=== PATIENT | female | born 1995 | race Caucasian/White ===

== ENCOUNTER 2016-12-17 22:14 | Outpatient (CLI) | payer OTHER ==
[2016-12-17 22:59] LABS: Appearance,Urine Clear (Clear); Bilirubin,Urine Negative (Negative); Glucose,Urine (UA) Negative (Negative); Ketones,Urine Negative (Negative); Leukocyte Esterase,Urine Negative (Negative); Nitrite,Urine Negative (Negative); PH, Urine 6.5 (5.0-8.0); Protein,Urine Trace (Negative); Specific Gravity,Urine 1.018 (1.001-1.035); UA Billing (MACRO vs. MICRO) CHEM; Urobilinogen,Urine <2.0 mg/dL (<2.0)
== END 2016-12-17 23:42 | disposition home or self-care (01) ==
LOC: FBPOP 22:14
PROVIDERS: ATTEND Obstetrics & Gynecology
DX: O99.89 Other specified diseases and conditions complicating pregnancy, childbirth and the puerperium (principal); R10.9 Unspecified abdominal pain; Z3A.35 35 weeks gestation of pregnancy
CPT/HCPCS: 59025; 81003; G0463; 99213

== ENCOUNTER 2017-01-15 06:08 | Inpatient (IN) | payer OTHER ==
[2017-01-15] MEDS ORDERED: TERBUTALINE 1 MG/ML VIAL SQ PRN (06:15)
[2017-01-15] MEDS ORDERED: OXYTOCIN 10 UNIT/ML 1 ML VIAL IM PRN (06:15)
[2017-01-15] MEDS ORDERED: CARBOPROST TROMETHAMINE 250 MCG/ML 1 ML AMP IM PRN (06:15)
[2017-01-15] MEDS ORDERED: LIDOCAINE 1% (PF) 10 MG/ML (30 ML SDV) SQ PRN (06:15)
[2017-01-15] MEDS ORDERED: METHYLERGONOVINE 0.2 MG/ML 1 ML AMP IM PRN (06:15)
[2017-01-15 06:21] VITALS: BMI 38.8
[2017-01-15] MEDS: LACTATED RINGERS 1,000 ML IV SCH ×3 (06:28→15:04)
[2017-01-15] MEDS: OXYTOCIN 30 UNITS/500 ML NS 30 UNIT in SALINE 1 500ML.BAG IV SCH (06:33)
[2017-01-15 06:37] LABS: Basophils # (A) 0.1 k/uL (0-0.2); Basophils % (A) 0 %; CH 28.4; CHCM 33.7; Eosinophils # (A) 0.4 k/uL (0-0.7); Eosinophils % (A) 3 %; HCT 35.4 % (34.0-46.0); HDW 2.93; HGB 11.6 gm/dL (11.4-16.0); Luc % (Auto) 2; Lymphocytes # (A) 3.6 k/uL (1.0-4.8); Lymphocytes % (A) 28 %; MCH 27.7 pg (25.0-35.0); MCHC 32.8 g/dL (31.0-37.0); MCV 84.7 fL (80.0-100.0); Mean Platelet Volume 7.6; Monocytes # (A) 0.6 k/uL (0-1.0); Monocytes % (A) 5 %; Neutrophils # (A) 8.1 k/uL (1.3-7.7); Neutrophils % (A) 62 %; RBC 4.18 m/uL (3.80-5.40); RDW 14.3 % (11.5-15.5); WBC (Perox) 13.44
[2017-01-15] MEDS ORDERED: BUPIVACAINE (PF) 0.25% 30 ML VIAL ONE (10:30)
[2017-01-15] MEDS ORDERED: SODIUM CHLORIDE 0.9% 100 ML BAG ONE ×2 (10:30→22:10)
[2017-01-15] MEDS ORDERED: fentaNYL (PF) 50 MCG/ML 5 ML AMP ONE (10:30)
[2017-01-15] MEDS ORDERED: BUPIVACAINE (PF) 0.25% 25 ML, fentaNYL (PF) 200 MCG in SODIUM CHLORIDE 0.9% 71 ML EPIDURAL ONE (10:42)
--- NOTE | 2017-01-15 13:07 | P.HPOB ---
History of Present Illness H&P Date: 01/15/17 Chief Complaint: Induction of Labor 21 year old presents at 39 weeks 5 days for induction of labor. Her cervix is 2-3/80/-2 and she is alison irregularly. Heart tones 140-145 with moderate variability and reactive. Review of Systems All systems: negative Constitutional: Denies chills, Denies fever Eyes: denies blurred vision, denies pain Ears, nose, mouth and throat: Denies headache, Denies sore throat Cardiovascular: Denies chest pain, Denies shortness of breath Respiratory: Denies cough Gastrointestinal: Denies abdominal pain, Denies diarrhea, Denies nausea, Denies vomiting Genitourinary: Denies dysuria, Denies hematuria Musculoskeletal: Denies myalgias Integumentary: Denies pruritus, Denies rash Neurological: Denies numbness, Denies weakness Psychiatric: Denies anxiety, Denies depression Endocrine: Denies fatigue, Denies weight change Past Medical History Past Medical History: No Reported History Additional Past Medical History / Comment(s): Obstetric history: First was an elective termination. This is her second and she has had care with me since 11 weeks. AB+, abs neg, Rub nonimmune, RPR NR, Hep B neg, HIV NR. History of Any Multi-Drug Resistant Organisms: None Reported Past Surgical History: Orthopedic Surgery Additional Past Surgical History / Comment(s): shoulder replacement Past Anesthesia/Blood Transfusion Reactions: Postoperative Nausea & Vomiting ( PONV) Past Psychological History: Anxiety Smoking Status: Never smoker Past Alcohol Use History: Occasional Past Drug Use History: None Reported - Past Family History Mother Family Medical History: No Reported History Medications and Allergies Home Medications Medication Instructions Recorded Confirmed Type #79/Iron Asp Gly/FA#1 1 each PO DAILY 12/17/16 01/15/17 History [Prenate Elite Tablet] Acetaminophen Tab [Tylenol Tab] 650 mg PO Q4H PRN 01/09/17 01/15/17 History Ranitidine HCl [Zantac] 150 mg PO DAILY 01/09/17 01/15/17 History Allergies Allergy/AdvReac Type Severity Reaction Status Date / Time morphine Allergy Anaphylaxis Verified 01/13/17 01:14 Exam Osteopathic Statement: *. No significant issues noted on an osteopathic structural exam other than those noted in the History and Physical/Consult. - Vital Signs Vital signs: Vital Signs Temp Pulse Resp BP Pulse Ox 01/15/17 06:16 96.5 F L 89 16 137/95 97 Intake and Output 01/14/17 01/15/17 01/15/17 22:59 06:59 14:59 Intake Total 1000 Balance 1000 Intake: IV 1000 Lactated Ringers 1,000 ml 1000 @ 125 mls/hr IV .Q8H [facility] Rx#:[id number] Other: Weight 112.491 kg Heart: RRR Lungs: CTAB abdomen: soft, nontender Extremeties: neg lissa's Results Result Diagrams: 01/15/17 06:30 Abnormal Lab Results - Last 24 Hours (Table) 01/15/17 Range/Units 06:30 WBC 13.0 H (3.8-10.6) k/uL Neutrophils # 8.1 H (1.3-7.7) k/uL Assessment and Plan (1) Normal labor Status: Acute Plan: 1. induction of labor with amniotomy and pitocin 2. anticipate normal vaginal delivery
[2017-01-15] MEDS ORDERED: HYDROmorphone 1 MG/ML 1 ML SYRINGE IVP STA (17:31)
[2017-01-15] MEDS ORDERED: CITRIC ACID-SODIUM CITRATE 15 ML CUP PO ONE (21:48)
[2017-01-15] MEDS ORDERED: ceFAZolin 2 GM in SODIUM CHLORIDE 0.9% 100 ML IVPB ONE (21:48)
[2017-01-15] MEDS ORDERED: HYDROmorphone (PF) 1 MG/ML ONE (22:10)
[2017-01-15] MEDS ORDERED: PROPOFOL 10 MG/ML 20 ML VIAL IV ONE (22:10)
[2017-01-15] MEDS ORDERED: SUCCINYLCHOLINE CHLORIDE 100 MG/5 ML SYR IV ONE (22:10)
[2017-01-15] MEDS ORDERED: KETOROLAC 30 MG/ML 1 ML VIAL ONE (22:10)
[2017-01-15] MEDS ORDERED: ONDANSETRON 4 MG/2 ML VIAL ONE (22:10)
[2017-01-15] MEDS ORDERED: MIDAZOLAM 2 MG/2 ML VIAL ONE (22:10)
[2017-01-15] MEDS ORDERED: OXYTOCIN 10 UNIT/ML 1 ML VIAL IM ONE (22:10)
[2017-01-15] MEDS ORDERED: ceFAZolin 1,000 MG VIAL ONE (22:10)
[2017-01-15] MEDS ORDERED: ZOLPIDEM 5 MG TAB PO PRN (22:50)
[2017-01-15] MEDS ORDERED: HYDROmorphone PCA 5 MG/25 ML SYRINGE IV PRN (22:50)
[2017-01-15] MEDS ORDERED: NALOXONE 0.4 MG/ML 1 ML VIAL IV PRN (22:50)
[2017-01-15] MEDS ORDERED: ACETAMINOPHEN TAB 325 MG TAB PO PRN (22:50)
[2017-01-15] MEDS ORDERED: diphenhydrAMINE 50 MG CAP PO PRN (22:50)
[2017-01-15] MEDS ORDERED: ONDANSETRON 4 MG/2 ML VIAL IVP PRN (22:50)
[2017-01-15] MEDS ORDERED: diphenhydrAMINE 50 MG/ML 1 ML VIAL IVP PRN ×2 (22:50)
[2017-01-15] MEDS ORDERED: diphenhydrAMINE 25 MG CAP PO PRN (22:50)
[2017-01-15] MEDS ORDERED: SIMETHICONE 80 MG CHEWABLE PO PRN (22:50)
[2017-01-15] MEDS ORDERED: METOCLOPRAMIDE 5 MG/ML 2 ML VIAL IVP PRN (22:50)
--- NOTE | 2017-01-15 22:56 | P.OP ---
Date of Procedure: 01/15/17 Preoperative Diagnosis: 1. at 39 and 5 2. Arrest of descent Postoperative Diagnosis: 1. at 39 and 5 2. Arrest of descent Procedure(s) Performed: Primary low transverse Anesthesia: SYLVIE Surgeon: Debi Murcia Ell Teacher #1: Jamil Jacobs Estimated Blood Loss (ml): 700 IV fluids (ml): 700 Urine output (ml): 75 Pathology: other (Placenta) Condition: stable Disposition: floor Operative Findings: Viable female, Apgars 8, 9, weight 7 lbs. 13 oz. Description of Procedure: Patient was taken to the operating room where epidural anesthesia was found not to be adequate. General anesthesia was obtained without difficulty. She was prepped and draped in normal sterile fashion in dorsal supine position with a leftward tilt. Pfannenstiel skin incision was made the scalpel and carried through to the underlying layer of fascia with the scalpel. Fascia was incised in midline and carried bilaterally with the Doherty scissors. The superior aspect of the fascial incision was grasped with Jeffrey clamps elevated and the underlying rectus muscles dissected off with the Doherty's. Attention was then turned to inferior aspect of same incision which in a similar fashion was grasped tented up and the underlying rectus muscles dissected off with the Doherty' s. The rectus muscles were the midline and the peritoneum was identified tented up and entered sharply with the scalpel. The incision was extended superiorly and inferiorly with good visualization of the bladder. The bladder blade was inserted and the vesicouterine peritoneum was incised the Metzenbaums then carried bilaterally and bladder flap created digitally. A low transverse incision was then made on the uterus with the scalpel. This was carried bilaterally and digital manner. 's head delivered atraumatically , nose and mouth bulb suctioned, cord clamped and cut, infant handed off to waiting nurses. Apgars 8,9, weight 7 lbs. 13 oz. Placenta delivered manually, intact with three-vessel cord. The uterus is exteriorized and cleared of all clots and debris. The uterine incision was closed with 0 Vicryl in a running locked fashion. Second layer of the same sutures used in imbricating fashion to obtain excellent hemostasis. Bladder flap was then reapproximated using 2-0 Vicryl in a running fashion. Both ovaries and tubes appeared normal. The uterus was placed back into the abdomen. The peritoneum was reapproximated using 2-0 Vicryl in a running fashion. The muscles were reapproximated using 2- 0 Vicryl in interrupted fashion. The fascia was reapproximated using 0 Vicryl in a running fashion. The subcutaneous tissues closed with 3-0 Vicryl running fashion. The skin was closed iveth. Patient tolerated the procedure well, sponge and instrument counts were correct times 2 and she was taken to the recovery room in stable condition.
[2017-01-16] MEDS: OXYTOCIN 30 UNITS/500 ML NS 30 UNIT in SALINE 1 500ML.BAG IV SCH ×2 (00:12→04:36)
[2017-01-16] MEDS: KETOROLAC 30 MG/ML 1 ML VIAL IVP SCH ×4 (00:13→22:36)
[2017-01-16] MEDS: LACTATED RINGERS 1,000 ML IV SCH ×3 (02:00→09:29)
[2017-01-16 06:48] LABS: Basophils % (A) 0 %; CH 28.3; CHCM 32.6; Eosinophils % (A) 0 %; HCT 31.1 % (34.0-46.0); HDW 2.81; Luc # (Auto) 0.29; Luc % (Auto) 2; Lymphocytes # (A) 2.3 k/uL (1.0-4.8); Lymphocytes % (A) 13 %; MCH 28.1 pg (25.0-35.0); MCHC 32.2 g/dL (31.0-37.0); MCV 87.2 fL (80.0-100.0); Mean Platelet Volume 7.4; Monocytes # (A) 0.9 k/uL (0-1.0); Monocytes % (A) 5 %; Neutrophils # (A) 14.6 k/uL (1.3-7.7); Neutrophils % (A) 80 %; RBC 3.57 m/uL (3.80-5.40); RDW 14.5 % (11.5-15.5); WBC 18.2 k/uL (3.8-10.6)
--- NOTE | 2017-01-16 07:14 | P.PNOBGPC ---
Subjective - Subjective Principal diagnosis: S/P 1*LTCS POD #1 Interval history: Pt seen and examined. Denies N/V, F/C, CP, SOB, calf pain. Patient reports: Reports appetite normal, Reports voiding normally, Reports pain well controlled (with SOLDER LEVEL[employer]ED [employer] BOARDS) : doing well Objective - Vital Signs Latest vital signs: Vital Signs Temp Pulse Resp BP Pulse Ox 01/16/17 04:00 97.6 F 105 H 16 133/77 98 01/16/17 01:12 97.0 F L 99 16 133/72 97 01/16/17 00:38 100 18 132/63 96 01/16/17 00:08 91 18 140/69 96 01/15/17 23:53 91 18 139/65 97 01/15/17 23:42 91 18 135/61 97 01/15/17 23:27 97 20 139/62 98 01/15/17 23:08 96.6 F L 115 H 20 133/63 98 Intake and Output 01/15/17 01/16/17 01/16/17 22:59 06:59 14:59 Intake Total 1000 Output Total 300 2950 Balance 700 -2950 Intake: IV 1000 Lactated Ringers 1,000 ml 1000 @ 125 mls/hr IV .Q8H [facility] Rx#:[id number] Output: Urine 300 150 Estimated Blood Loss 2800 Other: Voiding Method Indwelling Catheter - Exam Lungs: bilateral: normal Chest: Normal S1, Normal S2 Extremities: Present: normal Abdomen: Present: normal appearance, soft. Absent: distention, tenderness Incision: Present: normal, dry, intact Uterus: Present: normal, firm - Labs Labs: Abnormal Lab Results - Last 24 Hours (Table) 01/16/17 Range/Units 06:16 WBC 18.2 H (3.8-10.6) k/uL RBC 3.57 L (3.80-5.40) m/uL Hgb 10.0 L D (11.4-16.0) gm/dL Hct 31.1 L (34.0-46.0) % Neutrophils # 14.6 H (1.3-7.7) k/uL Assessment and Plan (1) Normal labor Current Visit: Yes Status: Resolved Code(s): O80 - ENCOUNTER FOR FULL-TERM UNCOMPLICATED DELIVERY; Z37.9 - OUTCOME OF DELIVERY, UNSPECIFIED SNOMED Code(s ): 25853641 (2) Status post primary low transverse section Narrative/Plan: 1. increase ambulation 2. reg diet with flatus 3. d/c electronics processor and start po pain meds. Current Visit: Yes Status: Acute Code(s): Z98.891 - HISTORY OF UTERINE SCAR FROM PREVIOUS SURGERY SNOMED Code(s): 366040497
[2017-01-16] MEDS: SENNOSIDES-DOCUSATE SODIUM 1 EACH TAB PO SCH ×2 (09:27→19:53)
[2017-01-16 20:31] VITALS: RESP 16
[2017-01-16] MEDS: Acetaminophen-Codeine 300-30mg TAB PO PRN (22:49)
[2017-01-17] MEDS: LACTATED RINGERS 1,000 ML IV SCH ×3 (01:49→01:51)
[2017-01-17] MEDS: OXYTOCIN 30 UNITS/500 ML NS 30 UNIT in SALINE 1 500ML.BAG IV SCH ×3 (01:50→01:52)
[2017-01-17] MEDS: IBUPROFEN 600 MG TAB PO PRN ×3 (04:21→23:17)
--- NOTE | 2017-01-17 07:08 | P.PNOBGPC ---
Subjective - Subjective Principal diagnosis: S/P 1*LTCS POD #1 Interval history: Patient seen and examined. Denies N/V, F/C, CP, SOB, calf pain. Patient reports: Reports appetite normal, Reports voiding normally, Reports pain well controlled, Reports ambulating normally : doing well Objective - Vital Signs Latest vital signs: Vital Signs Temp Pulse Resp BP Pulse Ox 01/16/17 23:23 99.1 F 110 H 16 121/95 98 01/16/17 20:00 97.7 F 108 H 16 125/70 98 01/16/17 16:00 97.8 F 107 H 18 131/59 01/16/17 12:00 97.1 F L 105 H 18 125/68 01/16/17 08:00 97.1 F L 106 H 18 116/54 Intake and Output 01/16/17 01/17/17 01/17/17 22:59 06:59 14:59 Intake Total 1000 Output Total 500 Balance 500 Intake: IV 1000 Invasive Line 1 1000 Output: Urine 500 Other: # Voids 1 - Exam Lungs: bilateral: normal Chest: Normal S1, Normal S2 Extremities: Present: normal Abdomen: Present: normal appearance, soft. Absent: distention, tenderness Incision: Present: normal, dry, intact Uterus: Present: normal, firm Assessment and Plan (1) Normal labor Current Visit: Yes Status: Resolved Code(s): O80 - ENCOUNTER FOR FULL-TERM UNCOMPLICATED DELIVERY; Z37.9 - OUTCOME OF DELIVERY, UNSPECIFIED SNOMED Code(s ): 43579877 (2) Status post primary low transverse section Narrative/Plan: 1. cont pain control 2. work on breast feeding 3. increase ambulation Current Visit: Yes Status: Acute Code(s): Z98.891 - HISTORY OF UTERINE SCAR FROM PREVIOUS SURGERY SNOMED Code(s): 467308307
[2017-01-17] MEDS: SENNOSIDES-DOCUSATE SODIUM 1 EACH TAB PO SCH ×2 (08:27→19:26)
[2017-01-17] MEDS: Acetaminophen-Codeine 300-30mg TAB PO PRN ×2 (09:49→19:25)
[2017-01-18] MEDS: Acetaminophen-Codeine 300-30mg TAB PO PRN (03:12)
[2017-01-18] MEDS: IBUPROFEN 600 MG TAB PO PRN (08:37)
[2017-01-18 08:47] VITALS: BP 147/90; PULSE 105; TEMP 98.1
--- NOTE | 2017-01-18 08:52 | P.DS ---
Providers Date of admission: 01/15/17 06:08 Expected date of discharge: 01/18/17 Attending physician: Debi Murcia Primary care physician: Stated None - Discharge Diagnosis(es) (1) Normal labor Current Visit: Yes Status: Resolved (2) Status post primary low transverse section Current Visit: Yes Status: Acute Hospital Course: Patient presented for induction of labor. She underwent a primary low transverse . Her postop course was uncomplicated. She will be discharged home POD #3 in stable condition to follow up with me in 1 week. Plan - Discharge Summary New Discharge Prescriptions: Acetaminophen-Codeine 300-30mg [Tylenol #3] 2 tab PO Q6H PRN #30 tablet PRN Reason: Pain Ibuprofen [Motrin] 600 mg PO Q6HR PRN #30 tab PRN Reason: Mild Pain Or Fever >= 100.5 Discharge Medication List #79/Iron Asp Gly/FA#1 [Prenate Elite Tablet] 1 each PO DAILY 12/17/16 [ History] Acetaminophen Tab [Tylenol Tab] 650 mg PO Q4H PRN 01/09/17 [History] Ranitidine HCl [Zantac] 150 mg PO DAILY 01/09/17 [History] Acetaminophen-Codeine 300-30mg [Tylenol #3] 2 tab PO Q6H PRN #30 tablet [Rx] Ibuprofen [Motrin] 600 mg PO Q6HR PRN #30 tab 01/18/17 [Rx] Follow up Appointment(s)/Referral(s): Debi Murcia DO [Doctor of Osteopathic Medicine] - 1 Week
[2017-01-18] MEDS: SENNOSIDES-DOCUSATE SODIUM 1 EACH TAB PO SCH (13:31)
== END 2017-01-18 11:15 | disposition home or self-care (01) | DRG 766 ==
LOC: 4FBP 06:08
PROVIDERS: ADMIT Obstetrics & Gynecology; ATTEND Obstetrics & Gynecology
PROC: 3E033VJ Introduction of Other Hormone into Peripheral Vein, Percutaneous Approach (ICD-10-PCS; 2017-01-15)
PROC: 10907ZC Drainage of Amniotic Fluid, Therapeutic from Products of Conception, Via Natural or Artificial Opening (ICD-10-PCS; 2017-01-15)
PROC: 3E0S3NZ Introduction of Analgesics, Hypnotics, Sedatives into Epidural Space, Percutaneous Approach (ICD-10-PCS; 2017-01-15)
PROC: 10D00Z1 Extraction of Products of Conception, Low, Open Approach (ICD-10-PCS; principal; 2017-01-15 22:24)
DX: O80 Encounter for full-term uncomplicated delivery (principal); O61.0 Failed medical induction of labor; O62.1 Secondary uterine inertia; Z3A.39 39 weeks gestation of pregnancy; Z37.0 Single live birth; Z96.619 Presence of unspecified artificial shoulder joint; Z88.5 Allergy status to narcotic agent; Z79.899 Other long term (current) drug therapy; Z28.29 Immunization not carried out because of patient decision for other reason; Z86.59 Personal history of other mental and behavioral disorders
CPT/HCPCS: 85025; 88307

== ENCOUNTER → 2020-08-02 | Outpatient (CLI) | payer OTHER ==
[2020-08-02 13:26] LABS: Basophils # (A) 0.1 k/uL (0-0.2); Basophils % (A) 1 %; Eosinophils # (A) 1.3 k/uL (0-0.7); Eosinophils % (A) 15 %; HCT 44.9 % (34.0-46.0); HGB 14.5 gm/dL (11.4-16.0); Lymphocytes # (A) 3.2 k/uL (1.0-4.8); Lymphocytes % (A) 38 %; MCH 27.2 pg (25.0-35.0); MCHC 32.3 g/dL (31.0-37.0); MCV 84.2 fL (80.0-100.0); Mean Platelet Volume 7.5; Monocytes # (A) 0.5 k/uL (0-1.0); Monocytes % (A) 5 %; Neutrophils # (A) 3.4 k/uL (1.3-7.7); Neutrophils % (A) 40 %; Platelet Count 323 k/uL (150-450); RBC 5.34 m/uL (3.80-5.40); RDW 12.2 % (11.5-15.5); WBC 8.5 k/uL (3.8-10.6)
== END | disposition home or self-care (01) ==
LOC: LABPAT 12:14
PROVIDERS: ATTEND Obstetrics & Gynecology
DX: Z01.818 Encounter for other preprocedural examination (principal)
CPT/HCPCS: 36415; 85025

== ENCOUNTER 2020-08-09 06:41 | Day surgery (SDC) | payer OTHER ==
[2020-08-04 15:02] VITALS: BMI 38.3
[~2020-08-09 06:41] MED LIST: DEXAMETHASONE SOD PHOSPHATE 10 MG/ML 1 ML VIAL IV ONE; LACTATED RINGERS 1,000 ML IV SCH; LIDOCAINE 1% (10MG/ML) FOR IV START INTRADERMA PRN; MIDAZOLAM 2 MG/2 ML VIAL IV PRN; Pre Op ABX Message 1 EACH MISC MISCELLANE ONE; fentaNYL (PF) 50 MCG/ML 2 ML AMP IV PRN
[2020-08-09] MEDS ORDERED: ONDANSETRON 4 MG/2 ML VIAL IVP ONE (07:16)
[2020-08-09] MEDS ORDERED: ONDANSETRON 4 MG/2 ML VIAL ONE (07:17)
--- NOTE | 2020-08-09 07:56 | P.HPOB ---
History of Present Illness H&P Date: 08/09/20 Chief Complaint: Family planning 25-year-old presents for bilateral laparoscopic salpingectomy. She wants is her family planning reasons as well as a family history of ovarian cancer. Review of Systems All systems: negative Constitutional: Denies chills, Denies fever Eyes: denies blurred vision, denies pain Ears, nose, mouth and throat: Denies headache, Denies sore throat Cardiovascular: Denies chest pain, Denies shortness of breath Respiratory: Denies cough Gastrointestinal: Denies abdominal pain, Denies diarrhea, Denies nausea, Denies vomiting Genitourinary: Denies dysuria, Denies hematuria Musculoskeletal: Denies myalgias Integumentary: Denies pruritus, Denies rash Neurological: Denies numbness, Denies weakness Psychiatric: Denies anxiety, Denies depression Endocrine: Denies fatigue, Denies weight change Past Medical History Past Medical History: No Reported History Additional Past Medical History / Comment(s): HIGH CANCER RISK FOR OVARIAN AND BREAST CANCER History of Any Multi-Drug Resistant Organisms: None Reported Past Surgical History: Section, Orthopedic Surgery Additional Past Surgical History / Comment(s): LT shoulder replacement. ELECTIVE PREG. TERMINATION Past Anesthesia/Blood Transfusion Reactions: Postoperative Nausea & Vomiting (PONV) Past Psychological History: Anxiety Smoking Status: Current every day smoker Past Alcohol Use History: Occasional Additional Past Alcohol Use History / Comment(s): SMOKES 1/2 PPD SINCE AGE 22 Past Drug Use History: None Reported - Past Family History Mother Family Medical History: Cancer Additional Family Medical History / Comment(s): BREAST. AUNT OVARIAN AND BREAST. GRANDMOTHER-OVARIAN Medications and Allergies Home Medications Medication Instructions Recorded Confirmed Type Loratadine [Claritin] 10 mg PO DAILY 08/04/20 08/04/20 History Phentermine HCl 37.5 mg PO AC-BRKFST 08/04/20 08/04/20 History Allergies Allergy/AdvReac Type Severity Reaction Status Date / Time morphine Allergy Anaphylaxis Verified 08/04/20 14:54 Exam Osteopathic Statement: *. No significant issues noted on an osteopathic structural exam other than those noted in the History and Physical/Consult. Vital Signs Temp Pulse Resp BP Pulse Ox 08/09/20 07:13 98.6 F 103 H 20 133/71 95 Intake and Output 08/08/20 08/09/20 08/09/20 22:59 06:59 14:59 Other: Weight 102.4 kg Heart: Regular rate and rhythm Lungs: Clear to auscultation bilaterally Abdomen: Soft, nontender Extremities: Negative Homans sign Assessment and Plan (1) Family planning Current Visit: Yes Status: Acute Code(s): Z30.09 - ENCOUNTER FOR OTH GENERAL CNSL AND ADVICE ON CONTRACEPTION SNOMED Code(s): 241537898 (2) Family history of ovarian cancer Current Visit: Yes Status: Acute Code(s): Z80.41 - FAMILY HISTORY OF MALIGNANT NEOPLASM OF OVARY SNOMED Code(s): 049050468 Plan: 1. Bilateral Laparoscopic salpingectomy. Patient does understand that this only minimally decreases her risk. Ferrous gluconate codon immensely and she had her ovaries removed however she is not ready to deal with the issues of menopause.
[2020-08-09] MEDS ORDERED: PROPOFOL 10 MG/ML 20 ML VIAL IV ONE (08:05)
[2020-08-09] MEDS ORDERED: HYDROmorphone (PF) 1 MG/ML ONE (08:05)
[2020-08-09] MEDS ORDERED: ROCURONIUM BROMIDE 10 MG/ML 5 ML VIAL IV ONE (08:05)
[2020-08-09] MEDS ORDERED: NEOSTIGMINE 1 MG/ML 10 ML VIAL ONE (08:05)
[2020-08-09] MEDS ORDERED: SUCCINYLCHOLINE CHLORIDE VIAL 200 MG/10 ML VIAL IV ONE (08:05)
[2020-08-09] MEDS ORDERED: ACETAMINOPHEN IV (For NPO) 1,000 MG/100 ML VIAL ONE (08:05)
[2020-08-09] MEDS ORDERED: LIDOCAINE 1% INJ 10MG/ML (20 ML MDV) ONE (08:05)
[2020-08-09] MEDS ORDERED: MIDAZOLAM 2 MG/2 ML VIAL ONE (08:05)
[2020-08-09] MEDS ORDERED: GLYCOPYRROLATE 0.2 MG/ML 2 ML VIAL ONE (08:05)
[2020-08-09] MEDS ORDERED: KETOROLAC 15 MG/ML 1 ML VIAL ONE (08:05)
[2020-08-09] MEDS ORDERED: fentaNYL (PF) 50 MCG/ML 2 ML AMP ONE (08:05)
[2020-08-09] MEDS ORDERED: BUPIVACAINE (PF) 0.25% 30 ML VIAL SQ ONE ×2 (08:38→08:53)
--- NOTE | 2020-08-09 09:10 | P.OP ---
Date of Procedure: 08/09/20 Preoperative Diagnosis: 1. Family planning 2. Family history of ovarian cancer Postoperative Diagnosis: Same Procedure(s) Performed: Laparoscopic bilateral salpingectomy Anesthesia: CORBYA Surgeon: Debi Murcia Estimated Blood Loss (ml): 5 IV fluids (ml): 600 Urine output (ml): 200 Pathology: other (Bilateral fallopian tubes) Condition: stable Disposition: PACU Operative Findings: Uterus sounded 10 cm. Normal uterus, tubes, ovaries. Description of Procedure: Patient was taken to the operating room where general anesthesia was obtained without difficulty. She was prepped and draped in normal sterile fashion in the dorsal lithotomy position, legs placed in the Akash stirrups. Bladder drained of all urine. Seabrook speculum placed in the vagina and the anterior lip the cervix was grasped with single-tooth tenaculum. The uterus is sounded to 10 cm and the kroner manipulator was placed. Attention was then turned to the abdomen and gloves were changed. A 10 mm infraumbilical incision was made the scalpel and 10 mm optical trocar was placed under direct visualization. A 10 mm suprapubic Incision was made and a 10 mm optical trocar was placed under direct visualization. In the right lower quadrant a 5 mm incision was made and a 5 mm trocar was placed under direct visualization. Survey of the pelvis revealed normal uterus tubes and ovaries. The left fallopian tube was grasped with a atraumatic grasper, the LigaSure was used to seal and cut the mesosalpinx and amputate the left fallopian tube. The fallopian tube was pulled through the 10 port in the suprapubic area. The right fallopian tube was grasped with an atraumatic grasper. The LigaSure was used to seal and cut the mesosalpinx and amputate the right fallopian tube. This fallopian tube was pulled through the trocar. All instruments were then removed from the abdomen and vagina. The 10 mm infraumbilical incision was closed with 0 Vicryl and the fascial layer and then 4-0 Vicryl in a subcuticular fashion. The 5 mm incision was closed with 4- 0 Vicryl in a subcuticular fashion. Patient tolerated procedure well, sponge and instrument counts correct 2 and she was taken to recovery room in stable condition.
[2020-08-09 09:25] VITALS: TEMP 97.9
[2020-08-09 09:32] VITALS: RESP 16
[2020-08-09 10:41] VITALS: BP 120/68; PULSE 59
== END 2020-08-09 11:08 | disposition home or self-care (01) ==
LOC: OR 06:41 → MERGE 08:00 → OR 11:08
PROVIDERS: ATTEND Obstetrics & Gynecology
DX: Z30.2 Encounter for sterilization (principal); Z80.41 Family history of malignant neoplasm of ovary; Z80.3 Family history of malignant neoplasm of breast; K21.9 Gastro-esophageal reflux disease without esophagitis; F17.210 Nicotine dependence, cigarettes, uncomplicated; F41.9 Anxiety disorder, unspecified; Z88.5 Allergy status to narcotic agent; Z79.899 Other long term (current) drug therapy; Z98.891 History of uterine scar from previous surgery; Z98.890 Other specified postprocedural states; Z96.612 Presence of left artificial shoulder joint
CPT/HCPCS: 81025; 88302; 58661; J2250; J0330; J1100; J2710; J2405; J2001; J3010; J1170; J0131; J1885; J2704

== ENCOUNTER → 2020-09-11 | Outpatient (CLI) | payer OTHER | END | disposition home or self-care (01) | LOC: LABWHC1 11:58 | PROVIDERS: ATTEND Family Medicine | DX: Z03.818 Encounter for observation for suspected exposure to other biological agents ruled out (principal) | CPT/HCPCS: U0003; C9803 ==

== ENCOUNTER → 2024-09-02 | Outpatient (CLI) | payer BC ==
--- NOTE | 2024-09-02 11:06 | US ---
EXAMINATION TYPE: US gallbladder DATE OF EXAM: 09/02/2024 COMPARISON: NONE CLINICAL INDICATION: Female, 29 years old with history of R10.11 RIGHT UPPER QUADRANT PAIN; Epigastri c pain, post pranidol vomiting, acid reflux, constipation, and diarrhea x 1.5 months; Former cigarett e smoker x 8 months, now vapes TECHNIQUE: Grayscale and color Doppler imaging of the right upper quadrant was performed. FINDINGS: EXAM MEASUREMENTS: Liver Length: 17.4 cm Gallbladder Wall: 0.2 cm CBD: 0.3 cm Right Kidney: 9.1 x 4.1 x 4.3 cm WHARF BUILDER NOTES: Pancreas: Obscured by bowel gas Liver: Increased attenuation, decreased visualization of vessels suggestive of fatty infiltrate Gallbladder: Echogenic foci with posterior shadowing seen within neck Evidence for sonographic Salas's sign: No CBD: wnl Right Kidney: wnl IMPRESSION: 1. Cholelithiasis with no diagnostic evidence of cholecystitis. 2. Borderline hepatomegaly with nonspecific pattern to the liver which can be associated with hepatic steatosis underlying hepatocellular disease. [facility], , 09/02/2024 11:04 AM
== END | disposition home or self-care (01) ==
LOC: RADUSWWP 07:18
PROVIDERS: ATTEND Family Medicine
DX: K80.20 Calculus of gallbladder without cholecystitis without obstruction (principal)
CPT/HCPCS: 76705

== ENCOUNTER → 2024-10-04 | Outpatient (CLI) | payer BC ==
--- NOTE | 2024-10-04 11:37 | NM ---
EXAMINATION TYPE: NM hepatobiliary w EF DATE OF EXAM: 10/04/2024 COMPARISON: Ultrasound 09/02/2024 CLINICAL INDICATION: Female, 29 years old with right upper quadrant pain and history of K80.20 calcul us; TECHNIQUE: After the intravenous administration of 5.29 mCi Tc 99m Mebrofenin hepatobiliary scintigra phy is performed. Immediate images post injection. FINDINGS: There is satisfactory initial accumulation of tracer by the liver. The gallbladder is visualized wit hin 6 minutes. The small bowel activity is noted within 26 minutes. At one hour 8 ounces of oral en sure plus is given to mimic CCK and gallbladder ejection fraction is calculated at 88 %, slightly issac vated above the expected range. IMPRESSION: 1. No scintigraphic evidence for acute/chronic cholecystitis or biliary dyskinesia. 2. Increased gallbladder ejection fraction may be seen with gallbladder hyperkinesis. 3. Underlying moderate to severe hepatic steatosis noted on the patient's comparison ultrasound. [facility], , 10/04/2024 11:35 AM
== END | disposition home or self-care (01) ==
LOC: RADNMMAIN 06:41
PROVIDERS: ATTEND Family Medicine
DX: K80.20 Calculus of gallbladder without cholecystitis without obstruction (principal); K76.0 Fatty (change of) liver, not elsewhere classified
CPT/HCPCS: 78226; A9537

== ENCOUNTER 2024-10-14 02:29 | Emergency (ER) | payer BC ==
[2024-10-14 02:34] VITALS: RESP 18; TEMP 98.2
--- NOTE | 2024-10-14 02:50 | ED ---
Abdominal Pain HPI - General Chief Complaint: Abdominal Pain Stated Complaint: ABD Pain Time Seen by Provider: 10/14/24 02:41 Source: patient, RN notes reviewed Mode of arrival: ambulatory Limitations: no limitations - History of Present Illness Initial Comments: This is a 29-year-old female who presents to the emergency department for abdominal pain. Patient reports a history of gallstones and states that she just had a HIDA scan completed. She was referred to a general surgeon and is waiting for her upcoming surgical consult to discuss a cholecystectomy. She is unsure which surgical group this is with or when the appointment is. States that around 1 AM she was woken from her sleep by epigastric pain, which felt like another gallbladder attack. The pain radiates into her back. States that the only difference is this time the pain lasted longer than a typical flareup. States that she had hamburger helper with garlic bread for dinner. Denies any nausea at this time. MD Complaint: abdominal pain - Related Data Home Medications Medication Instructions Recorded Confirmed Loratadine [Claritin] 10 mg PO DAILY 08/04/20 08/04/20 Phentermine HCl 37.5 mg PO [id number] 08/04/20 08/04/20 Previous Rx's Medication Instructions Recorded Acetaminophen-Codeine 300-30mg 2 tab PO Q6H PRN #20 tablet 08/09/20 [Tylenol #3] Ibuprofen [Motrin] 600 mg PO Q6HR PRN #30 tab 08/09/20 Famotidine 40 mg PO DAILY #14 tablet 10/14/24 Ketorolac [Toradol] 10 mg PO Q6HR PRN #15 tab 10/14/24 Allergies Allergy/AdvReac Type Severity Reaction Status Date / Time morphine Allergy Anaphylaxis Verified 10/14/24 02:34 Review of Systems ROS Statement: Those systems with pertinent positive or pertinent negative responses have been documented in the HPI. ROS Other: All systems not noted in ROS Statement are negative. Past Medical History Past Medical History: No Reported History Additional Past Medical History / Comment(s): Obstetric history: First was an elective termination. This is her second and she has had care with me since 11 weeks. AB+, abs neg, Rub nonimmune, RPR NR, Hep B neg, HIV NR. History of Any Multi-Drug Resistant Organisms: None Reported Past Surgical History: Orthopedic Surgery Additional Past Surgical History / Comment(s): shoulder replacement Past Anesthesia/Blood Transfusion Reactions: Postoperative Nausea & Vomiting (PONV) Past Psychological History: Anxiety Smoking Status: Vaper Past Alcohol Use History: Occasional Past Drug Use History: None Reported - Past Family History Mother Family Medical History: Cancer General Exam Limitations: no limitations General appearance: alert, in no apparent distress Head exam: Present: atraumatic, normocephalic, normal inspection Respiratory exam: Present: normal lung sounds bilaterally. Absent: respiratory distress, wheezes, rales, rhonchi, stridor Cardiovascular Exam: Present: regular rate, normal rhythm, normal heart sounds. Absent: systolic murmur, diastolic murmur, rubs, gallop, clicks GI/Abdominal exam: Present: soft, tenderness (Epigastric), normal bowel sounds. Absent: distended Neurological exam: Present: alert, oriented X3, CN II-XII intact Psychiatric exam: Present: normal affect, normal mood Skin exam: Present: warm, dry, intact, normal color. Absent: rash Course Vital Signs 10/14/24 10/14/24 02:31 04:11 Temperature 98.2 F Pulse Rate 100 73 Respiratory 18 18 Rate Blood Pressure 133/84 124/91 O2 Sat by Pulse 98 99 Oximetry Medical Decision Making - Medical Decision Making This is a 29-year-old female who presents to the emergency department for abdominal pain. Was pt. sent in by a medical professional or institution? @ -No Did you speak to anyone other than the patient for history? @ -No Did you review nursing and triage notes? @ -Yes, and I agree, it is accurate with regards to the patient's symptoms. Were old charts reviewed? @ -Gallbladder ultrasound from 09/02/2024 demonstrating cholelithiasis without evidence of cholecystitis. HIDA scan from 10/04/2024 demonstrating no scintigraphic evidence for acute/chronic cholecystitis or biliary dyskinesia. She does have increased gallbladder ejection fraction that may be seen with gallbladder hyperkinesis. Differential Diagnosis? @ -Differential Abdominal Pain Women: Appendicitis, Cholecystitis, diverticulosis, ischemic bowel, pancreatitis, hepatitis, UTI, gastroenteritis, AAA, incarcerated hernia, bowel obstruction, constipation, inflammatory bowel, hepatitis, peptic ulcer disease, splenic infarction, perforated viscus, vulvitis, ovarian torsion, PID, kidney stone, placenta abruption, this is not meant to be an all-inclusive list EKG interpreted by me (3pts min.)? @ -EKG interpreted by me demonstrating the following: Sinus rhythm. Ventricular rate 85 bpm, IA interval 148 ms, QRS duration 81 ms, QTc 372 ms. X-rays interpreted by me (1pt min.)? @ -Not obtained CT interpreted by me (1pt min.)? @ -Not obtained U/S interpreted by me (1pt. min.)? @ -Not obtained What testing was considered but not performed? (CT, X-rays, U/S, labs)? Why? @ -Gallbladder ultrasound, however ultrasound is not available overnight and the patient did not want to wait to have this done and it was also felt to be unnecessary based on lab results. What meds were considered but not given? Why? @ -None Did you discuss the management of the patient with other professionals? @ -No Did you reconcile home meds? @ -No Was smoking cessation discussed for >3mins.? @ -No Was critical care preformed (if so, how long)? @ -No Were there social determinants of health that impacted care today? How? (Homelessness, low income, unemployed, alcoholism, drug addiction, transportation, low edu. Level, literacy, decrease access to med. care, [facility] [facility], rehab)? @ -No Was there de-escalation of care discussed even if they declined? (Discuss DNR or withdrawal of care, Hospice)? @ -No What co-morbidities impacted this encounter? (DM, HTN, Smoking, COPD, CAD, Cancer, CVA, Hep., AIDS, mental health diagnosis, sleep apnea, morbid obesity)? @ -Cholelithiasis Was patient admitted / discharged? @ -Discharged. Lab work unremarkable. Urinalysis demonstrates blood consistent with the patient being on her period. There is no sign of infection. Symptoms well-controlled with IV fluids, Toradol, and famotidine. Patient was evaluated overnight and ultrasound would not be available for several hours. However, advised that based on her laboratory workup being unremarkable and because her symptoms resolved with the provided medication, it is not necessary for her to remain here for several hours to have an ultrasound as acute cholecystitis would be unlikely, however this is an option if she would like to proceed with it. Patient states that she has an appointment with her PCP later today and given that symptoms improved she is comfortable with discharge home at this point. Toradol and famotidine prescribed for further management. Advised she follow a bland and low-fat diet for the meantime to help reduce the risk of symptom recurrence. Patient discharged home in stable condition. Case discussed with ED attending Dr. Denney. Return precautions reviewed in depth, the patient is instructed to return to the emergency department with any new, worsening, or concerning symptoms. Patient verbalized understanding. Undiagnosed new problem with uncertain prognosis? @ -None Drug Therapy requiring intensive monitoring for toxicity (Heparin, Nitro, Ins ulin, Cardizem)? @ -None Were any procedures done? @ -None Diagnosis/symptom? @ -Biliary colic Acute, or Chronic, or Acute on Chronic? @ -Acute Uncomplicated (without systemic symptoms) or Complicated (systemic symptoms)? @ -Uncomplicated Side effects of treatment? @ -None Exacerbation, Progression, or Severe Exacerbation] @ -Not applicable Poses a threat to life or bodily function? @ -No - Lab Data Result diagrams: 10/14/24 02:56 10/14/24 02:56 Lab Results 10/14/24 10/14/24 10/14/24 Range/Units 02:56 02:56 02:56 WBC 9.2 (3.8-10.6) k/uL RBC 4.92 (3.80-5.40) m/uL Hgb 13.5 (11.4-16.0) gm/dL Hct 40.6 (34.0-46.0) % MCV 82.6 (80.0-100.0) fL MCH 27.5 (25.0-35.0) pg MCHC 33.3 (31.0-37.0) g/dL RDW 12.4 (11.5-15.5) % Plt Count 348 (150-450) k/uL MPV 7.4 Neutrophils % 50 % Lymphocytes % 40 % Monocytes % 4 % Eosinophils % 4 % Basophils % 1 % Neutrophils # 4.7 (1.3-7.7) k/uL Lymphocytes # 3.7 (1.0-4.8) k/uL Monocytes # 0.4 (0-1.0) k/uL Eosinophils # 0.4 (0-0.7) k/uL Basophils # 0.1 (0-0.2) k/uL Sodium (137-145) mmol/L Potassium (3.5-5.1) mmol/L Chloride (98-107) mmol/L Carbon Dioxide (22-30) mmol/L Anion Gap mmol/L BUN (7-17) mg/dL Creatinine (0.52-1.04) mg/dL Est GFR (CKD-EPI)AfAm (>60 ml/min/1.73 sqM) Est GFR (CKD-EPI)NonAf (>60 ml/min/1.73 sqM) Glucose (74-99) mg/dL Plasma Lactic Acid Nelson (0.7-2.0) mmol/L Calcium (8.4-10.2) mg/dL Total Bilirubin (0.2-1.3) mg/dL AST (14-36) U/L ALT (4-34) U/L Alkaline Phosphatase (38-126) U/L Total Protein (6.3-8.2) g/dL Albumin (3.5-5.0) g/dL Amylase (30-110) U/L Lipase (23-300) U/L Urine Color Light Yellow Urine Appearance Clear (Clear) Urine pH 5.5 (5.0-8.0) Ur Specific [place] 1.020 (1.001-1.035) Urine Protein Negative (Negative) Urine Glucose (UA) Negative (Negative) Urine Ketones Negative (Negative) Urine Blood Large H (Negative) Urine Nitrite Negative (Negative) Urine Bilirubin Negative (Negative) Urine Urobilinogen <2.0 (<2.0) mg/dL Ur Leukocyte Esterase Small H (Negative) Urine RBC >182 H (0-5) /hpf Urine WBC 3 (0-5) /hpf Ur Squamous Epith Cells 1 (0-4) /hpf Urine Mucus Rare H (None) /hpf Urine HCG, Qual Not Detected (Not Detectd) 10/14/24 10/14/24 Range/Units 02:56 02:56 WBC (3.8-10.6) k/uL RBC (3.80-5.40) m/uL Hgb (11.4-16.0) gm/dL Hct (34.0-46.0) % MCV (80.0-100.0) fL MCH (25.0-35.0) pg MCHC (31.0-37.0) g/dL RDW (11.5-15.5) % Plt Count (150-450) k/uL MPV Neutrophils % % Lymphocytes % % Monocytes % % Eosinophils % % Basophils % % Neutrophils # (1.3-7.7) k/uL Lymphocytes # (1.0-4.8) k/uL Monocytes # (0-1.0) k/uL Eosinophils # (0-0.7) k/uL Basophils # (0-0.2) k/uL Sodium 139 (137-145) mmol/L Potassium 3.7 (3.5-5.1) mmol/L Chloride 108 H (98-107) mmol/L Carbon Dioxide 22 (22-30) mmol/L Anion Gap 9 mmol/L BUN 12 (7-17) mg/dL Creatinine 0.92 (0.52-1.04) mg/dL Est GFR (CKD-EPI)AfAm >90 (>60 ml/min/1.73 sqM) Est GFR (CKD-EPI)NonAf 84 (>60 ml/min/1.73 sqM) Glucose 98 (74-99) mg/dL Plasma Lactic Acid Nelson 0.7 (0.7-2.0) mmol/L Calcium 9.7 (8.4-10.2) mg/dL Total Bilirubin 0.5 (0.2-1.3) mg/dL AST 26 (14-36) U/L ALT 38 H (4-34) U/L Alkaline Phosphatase 52 (38-126) U/L Total Protein 7.4 (6.3-8.2) g/dL Albumin 4.4 (3.5-5.0) g/dL Amylase 54 (30-110) U/L Lipase 186 (23-300) U/L Urine Color Urine Appearance (Clear) Urine pH (5.0-8.0) Ur Specific [place] (1.001-1.035) Urine Protein (Negative) Urine Glucose (UA) (Negative) Urine Ketones (Negative) Urine Blood (Negative) Urine Nitrite (Negative) Urine Bilirubin (Negative) Urine Urobilinogen (<2.0) mg/dL Ur Leukocyte Esterase (Negative) Urine RBC (0-5) /hpf Urine WBC (0-5) /hpf Ur Squamous Epith Cells (0-4) /hpf Urine Mucus (None) /hpf Urine HCG, Qual (Not Detectd) Disposition Clinical Impression: Biliary colic Disposition: HOME SELF-CARE Instructions (If sedation given, give patient instructions): Biliary Colic (ED), Gallstones (ED) Additional Instructions: Return to the emergency department with any new, worsening, or concerning symptoms. Take the Toradol with Tylenol as needed for pain relief. If you choose to take the Toradol, do not take any other anti-inflammatories such as ibuprofen, take one or the other. Begin taking the famotidine once daily. Try to follow a bland and low-fat diet for the meantime to reduce the risk of symptom recurrence. Follow-up with your primary care provider as scheduled today. Prescriptions: Famotidine 40 mg PO DAILY #14 tablet Ketorolac [Toradol] 10 mg PO Q6HR PRN #15 tab PRN Reason: Pain Is patient prescribed a controlled substance at d/c from ED?: No Referrals: Sergey Hurd DO [Primary Care Provider] - 1-2 days Time of Disposition: 04:06
[2024-10-14 03:07] LABS: Basophils # (A) 0.1 k/uL (0-0.2); Basophils % (A) 1 %; Eosinophils # (A) 0.4 k/uL (0-0.7); Eosinophils % (A) 4 %; HCT 40.6 % (34.0-46.0); HGB 13.5 gm/dL (11.4-16.0); Lymphocytes # (A) 3.7 k/uL (1.0-4.8); Lymphocytes % (A) 40 %; MCH 27.5 pg (25.0-35.0); MCHC 33.3 g/dL (31.0-37.0); MCV 82.6 fL (80.0-100.0); Mean Platelet Volume 7.4; Monocytes # (A) 0.4 k/uL (0-1.0); Monocytes % (A) 4 %; Neutrophils # (A) 4.7 k/uL (1.3-7.7); Neutrophils % (A) 50 %; Platelet Count 348 k/uL (150-450); RBC 4.92 m/uL (3.80-5.40); RDW 12.4 % (11.5-15.5); WBC 9.2 k/uL (3.8-10.6)
[2024-10-14 03:17] LABS: ALT 38 U/L (4-34); AST 26 U/L (14-36); African American GFR (CKD) >90 (>60 ml/min/1.73 sqM); Albumin 4.4 g/dL (3.5-5.0); Alkaline Phosphatase 52 U/L (38-126); Amylase 54 U/L (30-110); Anion Gap 9 mmol/L; Blood Urea Nitrogen 12 mg/dL (7-17); Calcium 9.7 mg/dL (8.4-10.2); Carbon Dioxide 22 mmol/L (22-30); Chloride 108 mmol/L (98-107); Glucose 98 mg/dL (74-99); Lipase 186 U/L (23-300); Non-African American GFR(CKD) 84 (>60 ml/min/1.73 sqM); Potassium 3.7 mmol/L (3.5-5.1); Sodium 139 mmol/L (137-145); Total Bilirubin 0.5 mg/dL (0.2-1.3); Total Protein 7.4 g/dL (6.3-8.2)
[2024-10-14 03:23] LABS: Appearance,Urine Clear (Clear); Bilirubin,Urine Negative (Negative); Blood,Urine Large (Negative); Color,Urine Light Yellow; Glucose,Urine (UA) Negative (Negative); Ketones,Urine Negative (Negative); Leukocyte Esterase,Urine Small (Negative); Mucus,Urine Rare /hpf; Nitrite,Urine Negative (Negative); PH, Urine 5.5 (5.0-8.0); Protein,Urine Negative (Negative); RBC,Urine >182 /hpf (0-5); Squamous Epithelial Cell,Urine 1 /hpf (0-4); Urobilinogen,Urine <2.0 mg/dL (<2.0); WBC,Urine 3 /hpf (0-5)
[2024-10-14] MEDS: SODIUM CHLORIDE 0.9% 1,000 ML IV STA (03:23)
[2024-10-14] MEDS: KETOROLAC 15 MG/ML 1 ML VIAL IVP STA (03:23)
[2024-10-14] MEDS: FAMOTIDINE 20 MG/2 ML VIAL IV STA (03:24)
[2024-10-14] MEDS: HYDROmorphone 1 MG/ML 1 ML SYRINGE IVP STA (03:25)
[2024-10-14 04:18] VITALS: BP 124/91; PULSE 73
[2024-10-14] MEDS: ONDANSETRON 4 MG ODT STARTER PACK 2 TAB BTL PO STA (04:23)
== END 2024-10-14 04:22 | disposition home or self-care (01) ==
LOC: EC 02:29
DX: K80.50 Calculus of bile duct without cholangitis or cholecystitis without obstruction (principal); Z88.8 Allergy status to other drugs, medicaments and biological substances; F17.290 Nicotine dependence, other tobacco product, uncomplicated
CPT/HCPCS: 36415; 93005; 80053; 82150; 83605; 83690; 85025; 81001; 81025; 99284; 96374; 96375; 96361; J3490; J1885; S0119